=== PATIENT | male | born 1960 | race Caucasian/White ===

== ENCOUNTER 2018-07-08 07:38 | Inpatient (IN) | payer OTHER ==
[~2018-07-08] VITALS: Ht 180.3 cm; Wt 103.8 kg
--- NOTE | ~2018-07-08 | EKG ---
[place] [address] [facility] [employer] [place] [address] ELECTROCARDIOGRAM REPORT Name: KULWANT DYE Room #: 206-P DIS IN M.R.#: [id number] Admission: 07/09/18 Attend Phys: Jerardo Jean Discharge: 07/10/18 Date of : 64 Report #: [id number] THIS REPORT FOR: //name// [facility] Test Date: 2018-07-10 Test Time: 07:05:58 Pat Name: KULWANT DYE Department: Room: 206 P Gender: M Embedded Software Developer: SILVIA : 1960 Requested By: Camilo Molina Order Number: [id number] MD: Measurements Intervals [place] Rate: 65 P: 36 LA: 180 QRS: 36 QRSD: 97 T: 67 QT: 403 QTc: 419 Interpretive Statements Sinus rhythm Low voltage, extremity and precordial leads ST elevation suggests acute pericarditis Baseline wander in lead(s) V1 Compared to ECG 07/09/2018 10:47:42 No significant changes [email or web address] By: 0705 0705 Epiphany Epiphany, /EPI
--- NOTE | ~2018-07-08 | EKG ---
[place] [address] [address] [facility] [address] ELECTROCARDIOGRAM REPORT Name: KULWANT DYE Room #: REG KEENAN Rogel#: [id number] Admission: 07/08/18 Attend Phys: Jerardo Jean Discharge: Date of : 64 Report #: [id number] THIS REPORT FOR: //name// [facility] Test Date: 2018-07-08 Test Time: 08:05:55 Pat Name: KULWANT DYE Department: Room: Gender: Pouncing Machine Operator: Felipe ARRINGTON : 1960 Requested By: Jerardo Jean Order Number: [id number] MD: Camilo Molina Measurements Intervals [place] Rate: 66 P: 36 [place]: 183 QRS: 34 QRSD: 97 T: 68 QT: 395 QTc: 414 Interpretive Statements Sinus rhythm Low voltage, extremity leads Nonspecific ST segment abnormalities No previous ECG available for comparison Electronically Signed On 07-08-2018 8:24:13 TICKET TAKER FERRYBOAT by Camilo Molina [email or web address] <ELECTRONICALLY SIGNED> By: Camilo Molina MD 07/08/1824 08 0805 Camilo Molina MD /EPI
--- NOTE | ~2018-07-08 | EKG ---
[place] [address] [employer] [place] [place] [address] ELECTROCARDIOGRAM REPORT Name: KULWANT DYE Room #: 206- DIS IN M.R.#: [id number] Admission: 07/09/18 Attend Phys: Jerardo Jean Discharge: 07/10/18 Date of : 64 Report #: [id number] THIS REPORT FOR: //name// [facility] Test Date: 2018-07-09 Test Time: 16:24:02 Pat Name: KULWANT DYE Department: Room: 206 Gender: M Quill Cleaning Machine Operator: Cheri FRANCISCO : 1960 Requested By: Camilo Molina Order Number: [id number] MD: Measurements Intervals [place] Rate: 58 P: 38 TN: 179 QRS: 8 QRSD: 102 T: 59 QT: 432 QTc: 425 Interpretive Statements Sinus rhythm Probable left atrial enlargement Borderline low voltage, extremity leads Nonspecific ST segment abnormalities Electronically Signed On 07-10-2018 9:11:53 TIRE BUILDER HEAVY SERVICE by Camilo Molina Compared to ECG 07/08/2018 08:05:55 No significant changes [email or web address] By: 1624 1624 Epiphany Epiphany, /EPI
--- NOTE | ~2018-07-08 | H ---
[facility] [place] [place] [address] HISTORY AND PHYSICAL Name: KULWANT DYE Room #: 206-P ADM IN M.R.#: [id number] Admission: 07/09/18 Attend Phys: Jerardo Jean Discharge: Date of : 64 Report #: [id number] THIS REPORT FOR: //name// CC: FAM unknown Jerardo MCWILLIAMS DATE OF SERVICE: 07/08/2018 HISTORY OF PRESENT ILLNESS: This is a very pleasant gentleman with known coronary artery disease who I have been seeing last month for class 2-3 angina. Since that time he has not had any improvement in his symptomatology and states it is getting "worse." He is having exertional dyspnea and substernal pressure sensation typical of his angina. He now presents for cardiac catheterization for further delineation. PHYSICAL EXAMINATION: GENERAL: A well-developed, well-nourished white male, resting comfortably, in no acute distress. VITAL SIGNS: Temperature is 36.2, pulse 69, respirations 15, blood pressure 130/83, O2 sat on room air is 97%. HEENT: Normocephalic, atraumatic. Pupils are equal, round, reactive to light and accommodation. Extraocular muscles are intact. Sclerae and conjunctivae are anicteric. NECK: JVD is normal. Carotid upstrokes are bilaterally symmetrical. No bruits are heard. No thyromegaly. No lymphadenopathy. LUNGS: Clear to auscultation. No wheezes, rhonchi or crackles. No CVA tenderness. CARDIAC: Demonstrates a regular rhythm. Normal first and second heart sounds. No ventricular or atrial gallops, no rubs noted. No murmurs. No lifts or heaves, PMI normal. ABDOMEN: Soft, nontender, nondistended. Normal bowel sounds. EXTREMITIES: Without cyanosis, clubbing or edema. Distal pulses are intact. DTR symmetrical. NEUROLOGIC: Cranial nerves 2-12 are grossly normal and symmetrical. PSYCHIATRIC: Alert, oriented with normal affect. SKIN: Warm and dry. IMPRESSION: Coronary artery disease with class 2-3 angina and progressive in nature. In view of this I want to proceed directly with angiography. The risks, complications and alternatives to cath, angioplasty, conscious sedation [address] [address] HISTORY AND PHYSICAL Name: LEADERKULWANT Felipe Room #: 206-P ADM IN M.R.#: [id number] Admission: 07/09/18 Attend Phys: Jerardo Jean Discharge: Date of : 64 Report #: [id number] have been discussed with the patient; he voices understanding and wishes to proceed. <ELECTRONICALLY SIGNED> By: Jerardo Jean MD 07/10/18 1008 1011 1039 Jerardo Jean MD /nt
--- NOTE | ~2018-07-08 | EKG ---
[place] [address] [facility] [place] [address] ELECTROCARDIOGRAM REPORT Name: KULWANT DYE Room #: 206-P DIS IN M.R.#: [id number] Admission: 07/09/18 Attend Phys: Jerardo Jean Discharge: 07/10/18 Date of : 64 Report #: [id number] THIS REPORT FOR: //name// [facility] Test Date: 2018-07-09 Test Time: 10:47:42 Pat Name: KULWANT DYE Department: Room: 206 P Gender: M Practice Advisor: Felipe ARRINGTON : 1960 Requested By: Camilo Molina Order Number: [id number] MD: Rocco Curiel Measurements Intervals [place] Rate: 64 P: 37 LA: 185 QRS: 21 QRSD: 96 T: 60 QT: 410 QTc: 423 Interpretive Statements Sinus rhythm Minimal ST elevation, diffuse leads Compared to ECG 07/08/2018 08:05:55 No significant change was found Electronically Signed On 07-11-2018 10:54:00 MANAGER STEEL by Rocco Curiel [email or web address] <ELECTRONICALLY SIGNED> By: Rocco Curiel MD, [facility] 07/11/18 1054 1047 104 Rocco Curiel MD, FAC /EPI
--- NOTE | ~2018-07-08 | CATHLAB ---
[facility] [address] [place] [address] INVASIVE PROCEDURE REPORT Name: KULWANT DYE Room #: 206-P ADM IN ..#: [id number] Admission: 07/08/18 Attend Phys: Jerardo Cazares Discharge: Date of : 64 Date of Service: 07/09/18 1607 Report #: [id number] THIS REPORT FOR: //name// APPROVED REPORT Study performed: 07/09/2018 13:51:46 Patient Details Patient Status: In-Patient Room #: The patient is a 58 year-old male Event Personnel Camilo Molina Inside Sales Coordinator, Mechelle Gibbs RTR, KNITTING MACHINE FIXER Monitor, Reilly Andres RN, Luzmaria Andrews Scrpatti Procedures Performed DENNY Place w/wo Plasty Single CIRC 406356 Atherectomy w/wo Plasty Sgl CIRC 9129042 ATHSINGLE 41080 Initial Mod Sed Same Phys/QHP Gr5y 207326 88255 Mod Sed Same Phys/QHP Ea 196945 Hemostasis w/ Mynx Art Access - L femoral artery* Indication Unstable angina , Chest pain Procedure Narrative The Left Groin^ was infiltrated with 1% Lidocaine subcutaneous anesthesia. A PINNACLE 6FR Sheath #[id number] sheath was inserted into the LFA^. Coronary angiography was performed using coronary diagnostic catheters. The left coronary system was accessed and visualized with a VISTA 6FR XB 3.5 #[id number] catheter. Closure device was deployed with a 6 Fr MYNXGRIP 6/7F #[id number]. The patient tolerated the procedure well and there were no complications associated with the procedure. There was no hematoma. Intraoperative Conscious Sedation Sedation start time: 14:41 Case end Time: 15:28 Fentanyl 25 mcg Versed 1 mg Fluoro Time: 10.03 minutes Dose: DAP 9995.20 cGycm2 1360 mGy Contrast Type and Amount: Omnipaque 150 ml Diagnostic Cath Left Main The diagnostic cardiac catheterization was performed on [facility] [place] [address] INVASIVE PROCEDURE REPORT Name: KULWANT DYE Room #: 206-P [facility] IN .R.#: [id number] Admission: 07/08/18 Attend Phys: Jerardo Cazares Discharge: Date of : 64 Date of Service: 07/09/18 1607 Report #: [id number] July 08. There is a severe stenosis involving the distal left main/ostial left circumflex artery. The ostial/proximal left circumflex artery has a previous stent. The lesion involves part of the proximal segment of the stent. Hemodynamics The aortic pressure is 103/73 mmHg with a mean of 88 mmHg. PCI Technique Lesion Percutaneous coronary intervention was performed on the distal left main/ostial circumflex artery segment. The lesion stenosis prior to intervention was 90% with TILA 3 flow. A VISTA 6FR XB 3.5 #[id number] Guide Catheter was used to engage the ostium. A Luge Wire .014 x 182CM #[id number] Interventional Guidewire was used to cross the lesion. BALLOON DILATION A Balloon catheter Euphora RX 3.0 x 12 #[id number] was inserted and inflated up to 14.00atm for 21seconds. Prior to balloon dilatation, laser atherectomy was performed with 3 passes. 2 passes at 40-40 and one pass a 50-50. STENT DEPLOYMENT A drug-eluting stent RESOLUTE SHAWN RX 3.5 X 12 #[id number] was inserted and inflated up to 12.00atm for 33seconds. POST STENT DEPLOYMENT BALLOON DILATION A Balloon catheter TREK NC RX 3.25 X 12 #[id number] was inserted and inflated up to 18.00atm for 22seconds. Final angiography reveals 5 % stenosis with TILA 3 flow. Conclusion 1. Successful laser atherectomy and placement of a drug-eluting stent into the distal left main/ostial left circumflex artery. 2. Recommend dual antiplatelet therapy and aggressive risk factor management. <ELECTRONICALLY SIGNED> By: Camilo Molina MD 07/09/18 1607 06 06 Camilo Molina MD /INF
--- NOTE | ~2018-07-08 | CATHLAB ---
[facility] [employer] [address] INVASIVE PROCEDURE REPORT Name: KULWANT DYE Room #: 206-P [facility] IN ..#: [id number] Admission: 07/09/18 Attend Phys: Jerardo Cazares Discharge: 07/10/18 Date of : 64 Date of Service: 07/13/18 1101 Report #: [id number] THIS REPORT FOR: //name// APPROVED REPORT Study performed: 07/08/2018 10:01:44 Patient Details The patient is a 58 year-old male Event Personnel Jerardo Jean Battery Starter, Irma Naranjo RN RN, Mechelle Gibbs RTR, NAKUL Downing, Leonor Grossman Monitor Procedures Performed Art Access - R femoral artery* 89710 Initial Mod Sed Same Phys/QHP Gr5y 912433 Left Heart Cath Coronaries, Bypass Grafts 7505195 LHCCORCABG Supravalvular Aortography Injection 2445207 ISVA supervision of conscious sedation Indication Unstable angina (>72 hrs to = 7 days), Chest pain Procedure Narrative The Right Groin^ was infiltrated with subcutaneous anesthesia. A 4F SHEATH sheath was inserted into the RFA^. Coronary angiography was performed using coronary diagnostic catheters. The right coronary system was accessed and visualized with a JR4 catheter. The left coronary system was accessed and visualized with a JL4 catheter. An aortogram of the ONEIL was performed. Hemostasis was obtained with manual pressure following sheath removal without any complications. There was no hematoma. A ROOT ANGIO WAS DONE AT 20ML FOR 20ML. Intraoperative Conscious Sedation Versed 2 mg Fluoro Time: 5.30 minutes Dose: DAP 7908.00 cGycm2 1196 mGy Contrast Type and Amount: Omnipaque 50 ml Coronary Angiography The patient's coronary anatomy is right dominant. Diagnostic Cath [facility] [place] [address] INVASIVE PROCEDURE REPORT Name: KULWANT DYE Room #: 206-P [facility] IN M.R.#: [id number] Admission: 07/09/18 Attend Phys: Jerardo Cazares Discharge: 07/10/18 Date of : 64 Date of Service: 07/13/18 1101 Report #: [id number] Left Main Left main is of normal origin and caliber bifurcates left anterior descending left circumflex. At the distal tapering of approximately 40% LAD More caliber vessel which rapidly tapers and is terminal occluded at the origin of a small first diagonal and first septal underground roof bolter. Prior to this the vessel is 75% stenosed the mid and distal LAD fills via left internal mammary graft which is widely patent. The mid and distal LAD has moderate irregularities noted no high-grade lesions presents Diagonal 1 All caliber vessel without high-grade lesions except for an ostial 50% Circumflex Large-caliber vessel which has a long segment of stenting. The stent begins at the near portion and has a 95% lesion which involves an in-stent restenosis in the distal left main in its mid course is a 50% in-stent restenosis noted OM1 Small-caliber vessel occluded at its proximal portion with the mid and distal fill via SVG widely patent Right Coronary Her caliber vessel of normal origin which courses in the AV groove posteriorly giving rise to small posterior wall circulation. The proximal stent is widely patent without any restenosis noted R PDA Small-caliber vessel that significant high-grade lesions Left Ventriculography Left Ventriculography was not performed. Otic root injection was performed which demonstrated the presence of one saphenous vein graft. It was not enlarged or dilated. No significant aortic insufficiency was present Hemodynamics The aortic pressure is 98/66 mmHg with a mean of 77 mmHg. Conclusion 1. Coronary artery disease multivessel with patent JANSEN to the LAD SVG to the OM and a high-grade in-stent restenosis of the proximal circumflex 2. Abnormal hemodynamics with elevated left ventricular end-diastolic pressure Recommendations In view of having high-grade in-stent restenosis at a proximal [address] [address] INVASIVE PROCEDURE REPORT Name: KULWANT DYE Room #: 206-P [facility] IN M.R.#: [id number] Admission: 07/09/18 Attend Phys: Jerardo Cazares Discharge: 07/10/18 Date of : 64 Date of Service: 07/13/18 1101 Report #: [id number] portion of the circumflex and involving the distal left main I will schedule for laser debulking to improve long-term patency <ELECTRONICALLY SIGNED> By: Jerardo Jean MD 07/13/18 110 00 00 Jerardo Jean MD /INF
--- NOTE | ~2018-07-08 | EKG ---
[place] [address] [facility] [place] [address] ELECTROCARDIOGRAM REPORT Name: KULWANT DYE Room #: 206- DIS IN M.R.#: [id number] Admission: 07/09/18 Attend Phys: Jerardo Jean Discharge: 07/10/18 Date of : 64 Report #: [id number] THIS REPORT FOR: //name// [facility] Test Date: 2018-07-09 Test Time: 16:24:02 Pat Name: KULWANT DYE Department: Room: 206 Gender: M Fish Housekeeper: Cheri FRANCISCO : 1960 Requested By: Camilo Molina Order Number: [id number] MD: Rocco Curiel Measurements Intervals [place] Rate: 58 P: 38 ND: 179 QRS: 8 QRSD: 102 T: 59 QT: 432 QTc: 425 Interpretive Statements Sinus rhythm Minimal diffuse ST segment elevation Compared to ECG 07/08/2018 08:05:55 No significant changes Electronically Signed On 07-11-2018 10:55:00 AUTOMATIC DRY STARCH OPERATOR by Rocco Curiel [email or web address] <ELECTRONICALLY SIGNED> By: Rocco Curiel MD, [facility] 07/11/18 1055 162 162 Rocco Curiel MD, FACC /EPI
--- NOTE | ~2018-07-08 | EKG ---
[place] [address] [facility] [place] [address] ELECTROCARDIOGRAM REPORT Name: KULWANT DYE Room #: 206- DIS IN M.R.#: [id number] Admission: 07/09/18 Attend Phys: Jerardo Jean Discharge: 07/10/18 Date of : 64 Report #: [id number] THIS REPORT FOR: //name// [facility] Test Date: 2018-07-10 Test Time: 07:05:58 Pat Name: KULWANT DYE Department: Room: 206 Gender: M Student Life Vice President: SILVIA : 1960 Requested By: Camilo Molina Order Number: [id number] MD: Rocco Curiel Measurements Intervals [place] Rate: 65 P: 36 [place]: 180 QRS: 36 QRSD: 97 T: 67 QT: 403 QTc: 419 Interpretive Statements Sinus rhythm Minimal, diffuse ST segment elevation Baseline wander in lead(s) V1 Compared to ECG 07/08/2018 08:05:55 No significant change was found Electronically Signed On 07-11-2018 10:55:21 CRIMINOLOGY TEACHER by Rocco Curiel [email or web address] <ELECTRONICALLY SIGNED> By: Rocco Curiel MD, [facility] 07/11/18 1055 0705 Rocco Curiel MD, [facility] /EPI
--- NOTE | ~2018-07-08 | D ---
[facility] [place] [address] DISCHARGE SUMMARY Name: KULWANT DYE Room #: 206-P ADM IN M.R.#: [id number] Admission: 07/09/18 Attend Phys: Jerardo Jean Discharge: Date of : 64 Report #: [id number] THIS REPORT FOR: //name// CC: FAM jose eduardo LUGOAN OJ DATE OF SERVICE: 07/10/2018 ADMITTING DIAGNOSIS: Unstable angina. DISCHARGE DIAGNOSES: 1. Unstable angina. 2. Coronary artery disease. 3. Dyslipidemia. 4. Former smoker. 5. Acid peptic disease. PROCEDURES PERFORMED: 1. Left heart catheterization. 2. Percutaneous revascularization with intravascular laser and stent deployment. DISCHARGE MEDICATIONS: 1. Home meds. 2. Omeprazole 40 mg p.o. daily. 3. Nitroglycerin 0.4 sublingual p.r.n. chest pain. FOLLOWUP: Dr. Jean in 4 weeks. ACTIVITY: As tolerated. BRIEF CLINICAL HISTORY: See history and physical in the chart. HOSPITAL COURSE: The patient was admitted to the hospital and underwent left heart catheterization. This demonstrated significant in-stent restenosis of a proximal left circumflex lesion and stent. It was felt that debulking was appropriate for improved long-term result and subsequently laser revascularization of the in-stent restenosis was performed by Dr. Camilo Molina. The result was excellent and required stenting of the left main for which a DENNY stent was positioned. Post-procedure, the patient did quite well without any significant chest pain, pressure, tightness, heaviness or fullness, ambulating well without any hemodynamic or electrical instability. Now being discharged in [facility] [address] [place] [address] DISCHARGE SUMMARY Name: KULWANT DYE Room #: 206-P ADM IN M.R.#: [id number] Admission: 07/09/18 Attend Phys: Jerardo Jean Discharge: Date of : 64 Report #: [id number] improved and stable condition, to follow up with previously-stated instructions and medications. By: 1002 1015 Jerardo Jean MD /nt
--- NOTE | ~2018-07-08 | EKG ---
[place] [address] [facility] [facility] [place] [address] ELECTROCARDIOGRAM REPORT Name: KULWANT DYE Room #: 206-P ADM IN M.R.#: [id number] Admission: 07/09/18 Attend Phys: Jerardo Jean Discharge: Date of : 64 Report #: [id number] THIS REPORT FOR: //name// [facility] Test Date: 2018-07-10 Test Time: 07:05:58 Pat Name: KULWANT DYE Department: Room: 206 P Gender: M Instrument Processing Tech: SILVIA : 1960 Requested By: Camilo Molina Order Number: [id number] MD: Measurements Intervals [place] Rate: 65 P: 36 HI: 180 QRS: 36 QRSD: 97 T: 67 QT: 403 QTc: 419 Interpretive Statements Sinus rhythm Low voltage, extremity and precordial leads ST elevation suggests acute pericarditis Baseline wander in lead(s) V1 Compared to ECG 07/09/2018 10:47:42 No significant changes [email or web address] By: 0705 0705 Epiphany EpiphanyMD /EPI
[2018-07-08 08:02] VITALS: BP 130/83
[2018-07-08] MEDS ORDERED: ASPIR 8181 MG PO (08:16)
[2018-07-08] MEDS ORDERED: PLAVIX 75 MG TA75 M1 PO (08:16)
[2018-07-08] MEDS ORDERED: NORVASC10 MG PO (08:16)
[2018-07-08] MEDS ORDERED: LISINOPRIL10 MG PO (08:17)
[2018-07-08] MEDS ORDERED: CRESTOR10 MG PO (08:17)
[2018-07-08] MEDS ORDERED: CARVEDILOL12.5 MG PO (08:17)
[2018-07-08 08:18] LABS: HEMATOCRIT 43.1 % (42.0-52.0); HEMOGLOBIN 14.8 gm/dL (14.0-18.0); MCH 31.5 pg (26.0-34.0); MCHC 34.2 g/dL (28.0-37.0); MCV 92.1 fL (80.0-100.0); RBC 4.68 mil/uL (4.50-6.00); RDW 13.4 % (10.5-14.5); WBC 6.8 thou/uL (4.0-11.0)
[2018-07-08 08:32] LABS: CALCIUM 9.2 mg/dL (8.5-10.1); CREATININE 1.1 mg/dL (0.7-1.3); POTASSIUM 3.9 mmol/L (3.5-5.1)
[2018-07-08 14:48] VITALS: BP 111/69
[2018-07-08 20:22] VITALS: BP 106/67
[2018-07-08 23:33] VITALS: BP 99/49
[2018-07-09 05:18] VITALS: BP 95/55
[2018-07-09 08:08] VITALS: BP 103/59
[2018-07-09 09:38] LABS: HEMATOCRIT 43.8 % (42.0-52.0); HEMOGLOBIN 14.8 gm/dL (14.0-18.0); MCH 31.1 pg (26.0-34.0); MCHC 33.8 g/dL (28.0-37.0); MCV 92.1 fL (80.0-100.0); RBC 4.75 mil/uL (4.50-6.00); RDW 13.5 % (10.5-14.5)
[2018-07-09 09:43] LABS: CALCIUM 9.3 mg/dL (8.5-10.1); CREATININE 1.1 mg/dL (0.7-1.3); POTASSIUM 4.3 mmol/L (3.5-5.1)
[2018-07-09 11:48] VITALS: BP 98/66
[2018-07-09 15:45] VITALS: BP 107/74
[2018-07-09 19:07] VITALS: BP 104/67
[2018-07-10 00:12] VITALS: BP 98/60
[2018-07-10 04:52] VITALS: BP 97/60
[2018-07-10 06:56] LABS: HEMATOCRIT 42.6 % (42.0-52.0); HEMOGLOBIN 14.3 gm/dL (14.0-18.0); MCH 31.3 pg (26.0-34.0); MCHC 33.7 g/dL (28.0-37.0); MCV 92.9 fL (80.0-100.0); RBC 4.58 mil/uL (4.50-6.00); RDW 13.4 % (10.5-14.5); WBC 7.2 thou/uL (4.0-11.0)
[2018-07-10 07:22] LABS: ALBUMIN 3.1 g/dL (3.4-5.0); CREATININE 1.1 mg/dL (0.7-1.3); POTASSIUM 4.2 mmol/L (3.5-5.1); TOTAL BILIRUBIN 0.2 mg/dL (<0.1-1.0); TROPONIN-I 0.08 ng/mL (<0.06)
[2018-07-10 08:43] VITALS: BP 109/68
[2018-07-10 10:14] VITALS: BP 109/68
[2018-07-10 10:15] VITALS: BP 109/68
== END 2018-07-10 10:35 | disposition home or self-care (01) | DRG 247 ==
LOC: CATH 07:38 → 2N 13:24
PROVIDERS: Internal Medicine; Internal Medicine Cardiovascular Disease
PROC: B2111ZZ Fluoroscopy of Multiple Coronary Arteries using Low Osmolar Contrast (ICD-10-PCS; principal; 2018-07-09)
PROC: 4A023N7 Measurement of Cardiac Sampling and Pressure, Left Heart, Percutaneous Approach (ICD-10-PCS; principal; 2018-07-09)
PROC: 02C03ZZ Extirpation of Matter from Coronary Artery, One Artery, Percutaneous Approach (ICD-10-PCS; principal; 2018-07-09)
PROC: 027034Z Dilation of Coronary Artery, One Artery with Drug-eluting Intraluminal Device, Percutaneous Approach (ICD-10-PCS; principal; 2018-07-09)
DX: T82.855A Stenosis of coronary artery stent, initial encounter (principal); I25.110 Atherosclerotic heart disease of native coronary artery with unstable angina pectoris; E78.5 Hyperlipidemia, unspecified; K30 Functional dyspepsia; Z87.891 Personal history of nicotine dependence; Z79.899 Other long term (current) drug therapy
CPT/HCPCS: 10081

== ENCOUNTER → 2019-11-15 | Outpatient (CLI) | payer OTHER ==
[~2019-11-15] MED LIST: ASPIR 8181 MG PO; CARVEDILOL12.5 MG PO; CRESTOR10 MG PO; LISINOPRIL10 MG PO; NORVASC10 MG PO; PLAVIX 75 MG TA75 M1 PO
== END ==
LOC: SJCVC 09:49 → SJCVCIMAG 09:49
DX: R06.09 Other forms of dyspnea (principal); I25.810 Atherosclerosis of coronary artery bypass graft(s) without angina pectoris; E78.5 Hyperlipidemia, unspecified; Z95.1 Presence of aortocoronary bypass graft

== ENCOUNTER → 2020-10-04 | Outpatient (CLI) | payer OTHER ==
[~2020-10-04] MED LIST changes: +DEMADEX20 MG PO; +EFFIENT10 MG PO; +KLOR-CON 1010 MEQ PO; +OMEPRAZOLE40 MG PO
== END ==
LOC: SJCVC 09:48
PROVIDERS: ATTEND Internal Medicine
DX: R94.31 Abnormal electrocardiogram [ECG] [EKG] (principal); I20.0 Unstable angina; I10 Essential (primary) hypertension; E78.5 Hyperlipidemia, unspecified; F41.9 Anxiety disorder, unspecified; F17.200 Nicotine dependence, unspecified, uncomplicated; Z79.82 Long term (current) use of aspirin; Z79.899 Other long term (current) drug therapy

== ENCOUNTER 2020-10-09 09:20 | Observation (INO) | payer OTHER ==
[~2020-10-09] VITALS: Ht 180.3 cm; Wt 108.2 kg
[~2020-10-09 09:20] MED LIST changes: -DEMADEX20 MG PO; -EFFIENT10 MG PO; -KLOR-CON 1010 MEQ PO; -OMEPRAZOLE40 MG PO
[2020-10-09 10:40] VITALS: BP 104/69
[2020-10-09] MEDS ORDERED: KLOR-CON 1010 MEQ PO (10:50)
[2020-10-09] MEDS ORDERED: OMEPRAZOLE40 MG PO (10:50)
[2020-10-09] MEDS ORDERED: DEMADEX20 MG PO (10:50)
[2020-10-09 11:30] LABS: HEMOGLOBIN 13.5 gm/dL (14.0-18.0); MCHC 32.9 g/dL (28.0-37.0); MCV 94.1 fL (80.0-100.0); RBC 4.35 mil/uL (4.50-6.00); RDW 14.1 % (10.5-14.5); WBC 6.1 thou/uL (4.0-11.0)
[2020-10-09 11:46] LABS: CALCIUM 9.1 mg/dL (8.5-10.1); CREATININE 1.2 mg/dL (0.7-1.3); POTASSIUM 4.2 mmol/L (3.5-5.1)
--- NOTE | 2020-10-09 15:01 | EKG ---
[place] [address] [facility] [place] [address] ELECTROCARDIOGRAM REPORT Name: KULWANT DYE Room #: TERESA Rogel#: [id number] Admission: 10/09/20 Attend Phys: Jerardo Jean Discharge: Date of : 64 Report #: [id number] [facility] Test Date: 2020-10-09 Test Time: 11:21:18 Pat Name: KULWANT DYE Department: Room: Gender: M Landscape And Yardwork Laborer: KYLAH : 1960 Requested By: Jerardo Jean Order Number: [id number] MD: Levi Casey Measurements Intervals [place] Rate: 65 P: 4 [place]: 157 QRS: 59 QRSD: 96 T: 58 QT: 426 QTc: 443 Interpretive Statements Sinus rhythm Low voltage, extremity and precordial leads Minimal ST elevation, lateral leads Baseline wander in lead(s) I,III,aVL Compared to ECG 07/10/2018 07:05:58 Low QRS voltage now present ST (T wave) deviation still present Electronically Signed On 10-09-2020 15:01:06 CDT by Levi Casey [email or web address] <ELECTRONICALLY SIGNED> By: Levi Casey MD 10/09/20 1501 1121 1121 Levi Casey MD /EPI
--- NOTE | 2020-10-09 18:26 | NUR ---
PT ARRIVED TO UNIT APPROX 1730. VSS DENIES PAIN. UP AD IRA. R GROIN SITE CDI NO HEMATOMA. ADMISSION COMPLETE TELE STRIP PRINTED DOCUMENTED. PLAN FOR PT TO DC HOME TOMORROW. PT CURRENTLY EATING DINNER. DENIES NEEDS. CONTINUING POC .WILL PASS ON REPORT TO DELORES LANDON.
[2020-10-09 20:45] VITALS: BP 103/62
[2020-10-10 03:45] VITALS: BP 105/66
[2020-10-10 05:03] LABS: HEMATOCRIT 38.7 % (42.0-52.0); HEMOGLOBIN 12.7 gm/dL (14.0-18.0); MCHC 32.8 g/dL (28.0-37.0); MCV 94.7 fL (80.0-100.0); RBC 4.09 mil/uL (4.50-6.00); RDW 14.3 % (10.5-14.5); WBC 6.1 thou/uL (4.0-11.0)
[2020-10-10 05:35] LABS: ALBUMIN 2.9 g/dL (3.4-5.0); CALCIUM 8.8 mg/dL (8.5-10.1); CREATININE 1.2 mg/dL (0.7-1.3); POTASSIUM 4.1 mmol/L (3.5-5.1); TOTAL BILIRUBIN 0.2 mg/dL (0.2-1.0); TOTAL PROTEIN 6.6 g/dL (6.4-8.2)
--- NOTE | 2020-10-10 07:50 | NUR ---
PATIENT HAS BEEN OFF BEDREST AT SHIFT CHANGE AND HAS BEEN UP ADLIB TO THE BATHROOM.RIGHT GROIN C/D/I.DENIES PAIN.MONITOR SHOWS SR.POC CONTINUED.
[2020-10-10] MEDS ORDERED: EFFIENT10 MG PO (08:12)
--- NOTE | 2020-10-10 09:48 | NUR ---
CM REVIEW: 60 year old male who presented yesterday to [facility] for planned cardiac catheterization. There were no procedure related complications. He was monitored in CCU overnight. Per discussion with Cardiology FACILITIES MAINTENANCE TECHNICIAN He was deemed stable for discharge home. Cardiac rehab was consulted. He will follow-up with Dr. Jean in clinic as scheduled. Patient to discharge home and no CM needs noted.
[2020-10-10 11:15] VITALS: BP 105/66
--- NOTE | 2020-10-10 11:18 | NUR ---
PT IS AXOX4, PLEASANT. PT DENIES PAIN. R GROIN SITE C/D/I, NO HEMATOMA. CARDIOLOGY CONSULTED. PT TO DISCHARGE HOME. DISCHARGE EDUCATION CONDUCTED ON POST CATH CARE, MEDICATIONS. PT DISCHARGED HOME WITH VIA PERSONAL VEHICLE. NO CONCERNS AT THIS TIME.
== END 2020-10-10 11:53 | disposition home or self-care (01) ==
LOC: CATH 09:20 → 2N 17:49 → CATH 17:50 → 2N 17:50
PROVIDERS: ADMIT Internal Medicine; ATTEND Internal Medicine
DX: I25.110 Atherosclerotic heart disease of native coronary artery with unstable angina pectoris (principal); I42.9 Cardiomyopathy, unspecified; I10 Essential (primary) hypertension; E78.5 Hyperlipidemia, unspecified

== ENCOUNTER → 2021-05-14 | Outpatient (CLI) | payer OTHER ==
[~2021-05-14] MED LIST changes: +DEMADEX20 MG PO; +EFFIENT10 MG PO; +KLOR-CON 1010 MEQ PO; +OMEPRAZOLE40 MG PO
== END ==
LOC: SJCVC 08:47
PROVIDERS: ATTEND Internal Medicine
DX: I25.10 Atherosclerotic heart disease of native coronary artery without angina pectoris (principal); E78.5 Hyperlipidemia, unspecified; F17.200 Nicotine dependence, unspecified, uncomplicated; F41.9 Anxiety disorder, unspecified; I42.9 Cardiomyopathy, unspecified; Z82.49 Family history of ischemic heart disease and other diseases of the circulatory system; Z79.82 Long term (current) use of aspirin; Z79.899 Other long term (current) drug therapy; Z72.89 Other problems related to lifestyle; Z95.1 Presence of aortocoronary bypass graft